=== PATIENT | male | born 1960 | race Caucasian/White ===

== ENCOUNTER → 2019-03-02 | Outpatient (CLI) | payer OTHER ==
--- NOTE | ~2019-03-02 | ONC ---
[address] [address] RADIATION ONCOLOGY NOTE Name: SUNG AGUILAR Room: [facility]#: [id number] Admission: 03/02/19 Attend Phys: Brendan Mcdonald MD Discharge: Date of : 62 Report #: [id number] THIS REPORT FOR: //name// CC: Brendan Chauhan DATE OF SERVICE: 03/02/2019 RADIATION ONCOLOGY FOLLOWUP NOTE [facility] phone is [phone]. REFERRING PHYSICIANS: Include Alma Rosa Liu DO and RUBI Gan. PRIMARY SITE AND HISTOPATHOLOGY: The patient had recurrent prostate cancer as evidenced by rising PSA after his prostatectomy. His PSA was undetectable after prostatectomy and has started to slowly increase. Prior to his radiation treatments, his PSA was 0.9. He completed his salvage radiation therapy to the prostate bed on 10/30/2013. INTERVAL NOTE: The patient felt that he was emptying his bladder well. MEDICATIONS: Right now include allopurinol, Norvasc, hydrochlorothiazide, lisinopril, Coreg, Viagra as needed and metformin. SOCIAL HISTORY: The patient is . He has 3 daughters. Cigarettes, he does not smoke cigarettes. REVIEW OF SYSTEMS: GENITOURINARY: The patient is emptying his bladder well. GASTROINTESTINAL: He feels like he has a good appetite. PHYSICAL EXAMINATION: VITAL SIGNS: The patient weighed 223 pounds on 01/03/2017. He was 221 pounds on 03/02/2019. 03/02/2019 blood pressure was 110/82, pulse 95, oxygen saturation 97%, respirations 18. HEART: Had a regular rate and rhythm without murmur. LUNGS: Clear to auscultation. BACK: Had no tenderness to palpation. RECTAL: Prostate bed was flat. The patient was guaiac negative using [employer] Hemoccult cards from lot #[id number] that in 08/2019 and using Everett [employer] Hemoccult developer from lot #[id number] that expires in 03/2020. LABORATORY DATA: From 01/29/2019, he says he has this performed right at ____ [place] [address] RADIATION ONCOLOGY NOTE Name: SUNG AGUILAR Room: [facility]#: [id number] Admission: 03/02/19 Attend Phys: Brendan Mcdonald MD Discharge: Date of : 62 Report #: [id number] [place] by his primary care physician, so his PSA was 0.1. Other labs he had performed included a TSH, this was 1.9, hemoglobin A1c was 6.6 with normal being 4.8-5.6. White blood cell count was 4.1, hemoglobin was 13.2, platelets were 160,000. Sodium was 145, potassium 4.2 and AST was 41, ALT 33. Cholesterol was 123. ASSESSMENT AND PLAN: 1. History of prostate cancer. The patient had a detectable PSA of 0.1 at this point at this lab value. The reason for this could be that there was lab error or he may have a very small portion of normal prostate tissue that is still present or there may be recurrence of his prostate cancer. So, a repeat PSA was ordered in 03/2019 and the patient was asked to schedule a followup appointment to see me afterwards. 2. Erectile dysfunction. The patient uses Viagra as needed. 3. Hypertension. The patient takes lisinopril that is managed by his referring physicians. 4. Diabetes. The patient takes metformin and that is managed by his referring physicians. Thank you for allowing me to participate in the care of this patient. By: [id number] Mcdonald MD /hadley
== END ==
LOC: M.RTH 09:45
DX: Z08 Encounter for follow-up examination after completed treatment for malignant neoplasm (principal); I10 Essential (primary) hypertension; E11.9 Type 2 diabetes mellitus without complications; N52.9 Male erectile dysfunction, unspecified; Z85.46 Personal history of malignant neoplasm of prostate